=== PATIENT | female | born 1990 | race Asian ===

== ENCOUNTER 2018-09-25 18:20 | Emergency (ER) | payer OTHER ==
[~2018-09-25] VITALS: Ht 154.9 cm; Wt 80.7 kg
[2018-09-25] MEDS ORDERED: NEURONTIN 100M100 MG PO (18:58)
[2018-09-25] MEDS ORDERED: HYDROCHLOROT12.5 M1 PO (18:58)
[2018-09-25] MEDS ORDERED: TIZANIDINE HYDRO4 MG PO (18:58)
[2018-09-25] MEDS ORDERED: TOPAMAX50 MG PO (19:01)
[2018-09-25 19:58] LABS: PLATELET COUNT 326 K/uL (152-353)
[2018-09-25 20:24] LABS: POTASSIUM 3.3 mmol/L (3.6-5.2)
[2018-09-25 20:30] VITALS: BP 128/83; TEMP 98
== END 2018-09-25 20:32 | disposition home or self-care (01) ==
LOC: ED 18:20
PROVIDERS: Emergency Medicine
DX: I83.92 Asymptomatic varicose veins of left lower extremity (principal)
CPT/HCPCS: 36415; 80053; 85027; 85379; 99283; J1885